=== PATIENT | female | born 1950 | race Caucasian/White ===

== ENCOUNTER 2020-09-07 05:10 | Emergency (ER) | payer MEDICARE, MEDICAID, SELFPAY ==
[2020-09-07] VITALS (7 sets, daily range): BP systolic 148–175; BP diastolic 86–135; PULSE 92–109; RESP 18–19; TEMP 36.7; O2SAT 94–98; BMI 33.3
--- NOTE | 2020-09-07 03:22 | XRR_ITS ---
PROCEDURE INFORMATION: Exam: XR Chest Exam date and time: 09/07/2020 7:10 AM Age: 69 years old Clinical indication: Chest pain TECHNIQUE: Imaging protocol: XR of the chest Views: 1 view. COMPARISON: CR Chest 1 [place] [id number] 10/14/2014 1:01 PM FINDINGS: Lungs: Hypoinflation, interstitial prominence, and trace left basilar airspace disease. Pleural spaces: No pleural effusion. Heart/Mediastinum: Borderline cardiomegaly. Bones/joints: Degenerative change. Other findings: Brassiere artifact. XR/XR chest 1V portable [id number] IMPRESSION: 1. Borderline cardiomegaly. 2. Hypoinflation, interstitial prominence, and trace left basilar airspace disease.
--- NOTE | 2020-09-07 05:44 | ECG_ITS ---
[facility] Test Date: 2020-09-07 Pat Name: Nelida Forrest Department: Room: Gender: Female Project Specialist: : 1950 Requested By: Vasu Riojas Order Number: [id number] Raf MD: DEXTER BERMUDEZ Measurements Intervals [place] Rate: 99 P: 23 AK: 160 QRS: -25 QRSD: 90 T: 20 QT: 341 QTc: 439 Interpretive Statements SINUS RHYTHM VOLTAGE CRITERIA FOR LVH [MEETS CRITERIA IN ONE OF: R(aVL), S(V1), R(V5), R(V5/V6)+S(V1)] ANTERIOR MYOCARDIAL INFARCTION , PROBABLY OLD [40+ ms Q WAVE AND/OR ST/T ABNORMALITY IN V3/V4] Compared to ECG 10/14/2014 12:49:46 Left ventricular hypertrophy now present Sinus tachycardia no longer present Incomplete right bundle-branch block no longer present Myocardial infarct finding still present Electronically Signed On 09-07-2020 18:45:52 AURICULOTHERAPIST by DEXTER BERMUDEZ [id number]
[2020-09-07 05:52] LABS: Basophils # 0.1 10^3/uL (0.0-0.1); Eosinophils # 0.1 10^3/uL (0.0-0.8); Eosinophils % 0.7 %; Hematocrit 45.3 % (37.0-47.0); Hemoglobin 14.5 g/dL (11.5-15.3); Lymphocytes # 2.4 10^3/uL (0.8-4.8); Lymphocytes % 24.7 %; Mean Corpuscular Hemoglobin 30.1 pg (28.0-34.0); Mean Corpuscular Volume 94.2 fL (81-99); Mean Platelet Volume 10.6 fL (7.4-10.4); Monocytes # 0.6 10^3/uL (0.2-0.9); Monocytes % 5.9 %; Neutrophils # 6.56 10^3/uL (1.8-7.7); Neutrophils % 67.5 %; Nucleated Red Blood Cells % 0 %; Platelet Count 366 10^3/cmm (130-400); Red Blood Count 4.81 10^6/uL (4.1-5.3); Red Cell Distribution Width 11.5 % (12.1-15.1); White Blood Count 9.7 10^3/uL (4.0-10.0)
[2020-09-07] MEDS: lidocaine 2% viscous 15 ML, aluminum-mag hydrox-simethicon 30 ML, sucralfate oral liq 1 GM PO ×2 (05:58→09:30)
[2020-09-07] MEDS: sodium chloride 0.9% 1,000 ML 999 ML IV (06:00)
[2020-09-07] MEDS: ondansetron 2 mg/ML SDV 2 mL 4 MG IVP (06:01)
[2020-09-07] MEDS: morphine 4 mg/mL SDV 1 mL IVP (06:05)
--- NOTE | 2020-09-07 06:52 | W.ED.ABDPA2 ---
Documented by User: Vasu Beckham DO 09/07/20 06:57 HPI - Abdominal Pain General: Chief Complaint: Abdominal Pain Stated Complaint: possible gallbladder attack Time Seen by Provider: 09/07/20 05:22 History of Present Illness: HPI narrative: 69-year-old female presenting to the ER this morning with low I think my gallbladder hurts . She points to her epigastrium where she hurts. She has vomited a couple times and been nauseated. She is not short of breath or diaphoretic. She states that she has had pain since 8 PM or so last night no prior coronary disease or diagnosis of gallbladder disease. MD elicited complaint: abdominal pain Pertinent past history: none Associated Symptoms: Reports nausea and vomiting; Denies dysuria, fever(s), hematuria and melena Review of Systems Const: Denies: fever(s) Eyes: Denies: change in vision ENMT: Denies: odynophagia or sinus pain Card: Reports: chest pain; Denies: palpitations or orthopnea Resp: Denies: dyspnea, productive cough, non-productive cough or wheezing GI: Reports: abdominal pain, nausea and vomiting; Denies: melena : Denies: dysuria, urinary frequency, urinary urgency or hematuria Musc: Denies: neck pain, back pain, joint redness or joint warmth Skin/Breast: Denies: rash, pruritus or erythema Neuro: Denies: headache(s), dizziness or vertigo Psych: Denies: anxiety Physical Exam Const: GENERAL APPEARANCE: well developed ORIENTATION/CONSCIOUSNESS: Yes oriented to person, Yes oriented to place and Yes oriented to time HENMT: COMMON NORMALS: normocephalic, external ears normal and Normal external nose present HEAD & SCALP: normocephalic FACE & SINUS: normal facial exam NOSE: Normal external nose present and No nasal discharge present EXTERNAL EAR: Yes external ears normal Eye: COMMON NORMALS: Equal, round and reactive pupils present, EOMs intact bilaterally and conjunctivae normal EYELID: eyelids normal CONJUNCTIVA: Yes conjunctivae normal PUPIL: Yes Equal, round and reactive pupils present Neck/C-Spine: GENERAL: No tracheal deviation Chest: COMMONS NORMALS: normal inspection of the chest CHEST: No tenderness Resp: COMMON NORMALS: clear to auscultation bilaterally EFFORT & INSPECTION: No tachypneic, No respiratory distress, No retractions, No uses accessory muscles and No tracheal deviation AUSCULTATION: clear to auscultation bilaterally, no rhonchi, no wheezes and lung sounds not diminished Cardio: COMMON NORMALS: regular rate and regular rhythm RATE: regular rate RHYTHM: regular rhythm HEART SOUNDS: no murmurs PERIPHERAL PULSES: radial pulses present GI: INSPECTION: No abdominal distension AUSCULTATION: No Hyperactive bowel sounds present and No Hypoactive bowel sounds present PALPATION: No Guarding due to palpation present (GI) and No Rigid due to palpation PERCUSSION: no dullness to percussion and no tympanic to percussion Neuro: SENSORIUM/ORIENTATION: Yes oriented to person, Yes oriented to place and Yes oriented to time Psych: COMMON NORMALS: mental status grossly normal Skin: COMMON NORMALS: no rashes or lesions noted GENERAL SKIN EXAM: no rashes or lesions noted Course Vital Signs: Vital signs: Vital Signs Temperature 98.1 F 09/07/20 05:16 Pulse Rate 92 09/07/20 09:00 Respiratory Rate 18 09/07/20 09:00 Blood Pressure 148/101 09/07/20 06:30 Pulse Oximetry 94 09/07/20 09:00 MDM - Abdominal Pain MDM Narrative: Medical decision making narrative: 69-year-old female with epigastric/chest discomfort. She is received GI cocktail and some morphine. Awaiting labs. EKG shows minimal ST changes in the inferior leads as well as the septal leads. Not true elevation. Troponin is pending. Hemoglobin is 14.5. White count is 9.7. She will be checked out to Dr. Zuleta to follow-up on further studies including troponin. Lab Data: Labs: Lab Results 09/07/20 09/07/20 09/07/20 Range/Units 05:20 05:20 05:20 WBC 9.7 (4.0-10.0) 10^3/ uL RBC 4.81 (4.1-5.3) 10^6/u L Hgb 14.5 (11.5-15.3) g/dL Hct 45.3 (37.0-47.0) % MCV 94.2 (81-99) fL MCH 30.1 (28.0-34.0) pg MCHC 32.0 (30.0-36.0) g/dL RDW 11.5 L (12.1-15.1) % Plt Count 366 (130-400) 10^3/c mm MPV 10.6 H (7.4-10.4) fL Neut % (Auto) 67.5 % Lymph % (Auto) 24.7 % [facility] % (Auto) 5.9 % Eos % (Auto) 0.7 % Baso % (Auto) 1.0 % Neut # (Auto) 6.56 (1.8-7.7) 10^3/u L Lymph # (Auto) 2.4 (0.8-4.8) 10^3/u L [facility] # (Auto) 0.6 (0.2-0.9) 10^3/u L Eos # (Auto) 0.1 (0.0-0.8) 10^3/u L Baso # (Auto) 0.1 (0.0-0.1) 10^3/u L Nucleated RBC % (a uto) 0 % Nucleated RBCs # 0.0 /100WBC Sodium 139 (136-145) mmol/L Potassium 4.2 (3.5-5.1) mmol/L Chloride 99 (98-107) mmol/L Carbon Dioxide 26 (22-29) mmol/L Anion Gap 18.2 (5-19) BUN 9 (8-23) mg/dL Creatinine 0.7 (0.5-0.9) mg/dL GFR Calculation 83.0 L (90-130) mL/min Glucose 120 H (65-115) mg/dL Calculated Osmolal ity 288 (285-295) mOsm/k g Calcium 9.5 (8.5-10.5) mg/dL Total Bilirubin 0.4 (0.15-1.2) mg/dL AST 44 H (0-32) U/L ALT 34 H (0-33) U/L Alkaline Phosphata se 138 H (35-105) IU/L Troponin T Baselin e 9 (0-10) ng/L Troponin T 120 Min [place] (0-10) ng/L Delta Troponin T (0-10) ABS# C-Reactive Protein 2.4 (0.0-4.9) mg/L Total Protein 7.4 (6.6-8.7) g/dL Albumin 4.2 (3.5-5.2) g/dL Globulin 3.2 (1.3-4.6) g/dL Lipase 12 L (13-60) U/L Urine Color (Yellow) Urine Appearance (CLEAR) Urine pH (5-7) Ur Specific Gravit y (1.005-1.030) Urine Protein (Negative) Urine Glucose (UA) (Normal) Urine Ketones (Negative) Urine Blood (Negative) Urine Nitrate (Negative) Urine Bilirubin (Negative) Urine Urobilinogen (Negative) mg/dL Ur Leukocyte Rebecca ase (Negative) 09/07/20 09/07/20 Range/Units 06:44 07:20 WBC (4.0-10.0) 10^3/ uL RBC (4.1-5.3) 10^6/u L Hgb (11.5-15.3) g/dL Hct (37.0-47.0) % MCV (81-99) fL MCH (28.0-34.0) pg MCHC (30.0-36.0) g/dL RDW (12.1-15.1) % Plt Count (130-400) 10^3/c mm MPV (7.4-10.4) fL Neut % (Auto) % Lymph % (Auto) % [facility] % (Auto) % Eos % (Auto) % Baso % (Auto) % Neut # (Auto) (1.8-7.7) 10^3/u L Lymph # (Auto) (0.8-4.8) 10^3/u L [facility] [place] # (Auto) (0.2-0.9) 10^3/u L Eos # (Auto) (0.0-0.8) 10^3/u L Baso # (Auto) (0.0-0.1) 10^3/u L Nucleated RBC % (a uto) % Nucleated RBCs # /100WBC Sodium (136-145) mmol/L Potassium (3.5-5.1) mmol/L Chloride (98-107) mmol/L Carbon Dioxide (22-29) mmol/L Anion Gap (5-19) BUN (8-23) mg/dL Creatinine (0.5-0.9) mg/dL GFR Calculation (90-130) mL/min Glucose (65-115) mg/dL Calculated Osmolal ity (285-295) mOsm/k g Calcium (8.5-10.5) mg/dL Total Bilirubin (0.15-1.2) mg/dL AST (0-32) U/L ALT (0-33) U/L Alkaline Phosphata se (35-105) IU/L Troponin T Baselin e (0-10) ng/L Troponin T 120 Min [place] 7.73 (0-10) ng/L Delta Troponin T -1.27 L (0-10) ABS# C-Reactive Protein (0.0-4.9) mg/L Total Protein (6.6-8.7) g/dL Albumin (3.5-5.2) g/dL Globulin (1.3-4.6) g/dL Lipase (13-60) U/L Urine Color Yellow (Yellow) Urine Appearance Clear (CLEAR) Urine pH 7 (5-7) Ur Specific Gravit y 1.015 (1.005-1.030) Urine Protein Neg (Negative) Urine Glucose (UA) Norm (Normal) Urine Ketones Negative (Negative) Urine Blood Neg (Negative) Urine Nitrate Negative (Negative) Urine Bilirubin Neg (Negative) Urine Urobilinogen Norm (Negative) mg/dL Ur Leukocyte Rebecca ase Negative (Negative) Discharge Plan Discharge Patient Disposition: Home Clinical Impression: Atypical chest pain, Gastroesophageal reflux disease, Tinnitus Condition: Stable Prescriptions: New aspirin 81 mg tablet,delayed release (DR/EC) 81 mg PO DAILY Qty: 30 RF: 0 Protonix 40 mg tablet,delayed release (DR/EC) 40 mg PO QAM 56 Days Qty: 56 RF: 0 No Action Zyrtec 10 mg Tablet 10 mg PO DAILY RF: 0 ibuprofen 200 mg Tablet 400 mg PO PRN RF: 0 Flonase 50 mcg/actuation [place],Suspension 1 spray INTRANASAL DAILY RF: 0 Discharge Orders: Discharge ED (Routine); Ordered 09/07/20 Ordered By: Domenic Fermin Patient Instructions: Opioid Safety Activity Restrictions/Additional Instructions: Case management will call with a referral for a cardiac stress test as well as referral to ear nose and throat for your tenderness. Sign Out Sign Out Data: Patient Sign Out occurred on 09/07/20 at 07:14. Patient's care was discussed, and care was transferred from to Domenic Fermin DO. Coding Level of Care Code ED Coat Check Attendant for Chg Fwd Exam Comprehensive Documented by User: Domenic Fermin DO 09/07/20 10:15 HPI - Abdominal Pain General: Chief Complaint: Abdominal Pain Stated Complaint: possible gallbladder attack Time Seen by Provider: 09/07/20 05:22 Course Vital Signs: Vital signs: Vital Signs Temperature 98.1 F 09/07/20 05:16 Pulse Rate 92 09/07/20 09:00 Respiratory Rate 18 09/07/20 09:00 Blood Pressure 148/101 09/07/20 06:30 Pulse Oximetry 94 09/07/20 09:00 MDM - Abdominal Pain MDM Narrative: Medical decision making narrative: Assumed from Dr. Beckham. Cardiac enzymes negative EKG unremarkable. Patient has improvement with GI cocktail. We will discharge her home set up for outpatient sestamibi stress test started on enteric-coated aspirin daily and PPI. Patient also asked us to check her if she has occlusion of cerumen in the right ear partial occlusion in the left that she has been having a lot of ringing in her years and difficulty with hearing will refer to ENT for further evaluation. Lab Data: Labs: Lab Results 09/07/20 09/07/20 09/07/20 Range/Units 05:20 05:20 05:20 WBC 9.7 (4.0-10.0) 10^3/ uL RBC 4.81 (4.1-5.3) 10^6/u L Hgb 14.5 (11.5-15.3) g/dL Hct 45.3 (37.0-47.0) % MCV 94.2 (81-99) fL MCH 30.1 (28.0-34.0) pg MCHC 32.0 (30.0-36.0) g/dL RDW 11.5 L (12.1-15.1) % Plt Count 366 (130-400) 10^3/c mm MPV 10.6 H (7.4-10.4) fL Neut % (Auto) 67.5 % Lymph % (Auto) 24.7 % [facility] [place] % (Auto) 5.9 % Eos % (Auto) 0.7 % Baso % (Auto) 1.0 % Neut # (Auto) 6.56 (1.8-7.7) 10^3/u L Lymph # (Auto) 2.4 (0.8-4.8) 10^3/u L [facility] [place] [facility] # (Auto) 0.6 (0.2-0.9) 10^3/u L Eos # (Auto) 0.1 (0.0-0.8) 10^3/u L Baso # (Auto) 0.1 (0.0-0.1) 10^3/u L Nucleated RBC % (a uto) 0 % Nucleated RBCs # 0.0 /100WBC Sodium 139 (136-145) mmol/L Potassium 4.2 (3.5-5.1) mmol/L Chloride 99 (98-107) mmol/L Carbon Dioxide 26 (22-29) mmol/L Anion Gap 18.2 (5-19) BUN 9 (8-23) mg/dL Creatinine 0.7 (0.5-0.9) mg/dL GFR Calculation 83.0 L (90-130) mL/min Glucose 120 H (65-115) mg/dL Calculated Osmolal ity 288 (285-295) mOsm/k g Calcium 9.5 (8.5-10.5) mg/dL Total Bilirubin 0.4 (0.15-1.2) mg/dL AST 44 H (0-32) U/L ALT 34 H (0-33) U/L Alkaline Phosphata se 138 H (35-105) IU/L Troponin T Baselin e 9 (0-10) ng/L Troponin T 120 Min [place] (0-10) ng/L Delta Troponin T (0-10) ABS# C-Reactive Protein 2.4 (0.0-4.9) mg/L Total Protein 7.4 (6.6-8.7) g/dL Albumin 4.2 (3.5-5.2) g/dL Globulin 3.2 (1.3-4.6) g/dL Lipase 12 L (13-60) U/L Urine Color (Yellow) Urine Appearance (CLEAR) Urine pH (5-7) Ur Specific Gravit y (1.005-1.030) Urine Protein (Negative) Urine Glucose (UA) (Normal) Urine Ketones (Negative) Urine Blood (Negative) Urine Nitrate (Negative) Urine Bilirubin (Negative) Urine Urobilinogen (Negative) mg/dL Ur Leukocyte Rebecca ase (Negative) 09/07/20 09/07/20 Range/Units 06:44 07:20 WBC (4.0-10.0) 10^3/ uL RBC (4.1-5.3) 10^6/u L Hgb (11.5-15.3) g/dL Hct (37.0-47.0) % MCV (81-99) fL MCH (28.0-34.0) pg MCHC (30.0-36.0) g/dL RDW (12.1-15.1) % Plt Count (130-400) 10^3/c mm MPV (7.4-10.4) fL Neut % (Auto) % Lymph % (Auto) % [facility] [place] % (Auto) % Eos % (Auto) % Baso % (Auto) % Neut # (Auto) (1.8-7.7) 10^3/u L Lymph # (Auto) (0.8-4.8) 10^3/u L [facility] [place] # (Auto) (0.2-0.9) 10^3/u L Eos # (Auto) (0.0-0.8) 10^3/u L Baso # (Auto) (0.0-0.1) 10^3/u L Nucleated RBC % (a uto) % Nucleated RBCs # /100WBC Sodium (136-145) mmol/L Potassium (3.5-5.1) mmol/L Chloride (98-107) mmol/L Carbon Dioxide (22-29) mmol/L Anion Gap (5-19) BUN (8-23) mg/dL Creatinine (0.5-0.9) mg/dL GFR Calculation (90-130) mL/min Glucose (65-115) mg/dL Calculated Osmolal ity (285-295) mOsm/k g Calcium (8.5-10.5) mg/dL Total Bilirubin (0.15-1.2) mg/dL AST (0-32) U/L ALT (0-33) U/L Alkaline Phosphata se (35-105) IU/L Troponin T Baselin e (0-10) ng/L Troponin T 120 Min [place] 7.73 (0-10) ng/L Delta Troponin T -1.27 L (0-10) ABS# C-Reactive Protein (0.0-4.9) mg/L Total Protein (6.6-8.7) g/dL Albumin (3.5-5.2) g/dL Globulin (1.3-4.6) g/dL Lipase (13-60) U/L Urine Color Yellow (Yellow) Urine Appearance Clear (CLEAR) Urine pH 7 (5-7) Ur Specific Gravit y 1.015 (1.005-1.030) Urine Protein Neg (Negative) Urine Glucose (UA) Norm (Normal) Urine Ketones Negative (Negative) Urine Blood Neg (Negative) Urine Nitrate Negative (Negative) Urine Bilirubin Neg (Negative) Urine Urobilinogen Norm (Negative) mg/dL Ur Leukocyte Rebecca ase Negative (Negative) Discharge Plan Discharge Patient Disposition: Home Clinical Impression: Atypical chest pain, Gastroesophageal reflux disease, Tinnitus Condition: Stable Prescriptions: New aspirin 81 mg tablet,delayed release (DR/EC) 81 mg PO DAILY Qty: 30 RF: 0 Protonix 40 mg tablet,delayed release (DR/EC) 40 mg PO QAM 56 Days Qty: 56 RF: 0 No Action Zyrtec 10 mg Tablet 10 mg PO DAILY RF: 0 ibuprofen 200 mg Tablet 400 mg PO PRN RF: 0 Flonase 50 mcg/actuation [place],Suspension 1 spray INTRANASAL DAILY RF: 0 Discharge Orders: Discharge ED (Routine); Ordered 09/07/20 Ordered By: Domenic Fermin Patient Instructions: Opioid Safety Activity Restrictions/Additional Instructions: Case management will call with a referral for a cardiac stress test as well as referral to ear nose and throat for your tenderness. Sign Out Sign Out Data: Patient Sign Out occurred on 09/07/20 at 07:14. Patient's care was discussed, and care was transferred from to Domenic Fermin DO. Coding Level of Care Code ED Coat Check Attendant for Onig Fwd Exam Comprehensive
--- NOTE | 2020-09-07 07:44 | ECG_ITS ---
[facility] Test Date: 2020-09-07 Pat Name: Nelida Forrest Department: Room: Gender: Female Digital Asset Manager: : 1950 Requested By: Vasu Riojas Order Number: [id number] Reading MD: DEXTER BERMUDEZ Measurements Intervals [place] Rate: 94 P: 36 DE: 155 QRS: -27 QRSD: 102 T: 12 QT: 349 QTc: 437 Interpretive Statements SINUS RHYTHM VOLTAGE CRITERIA FOR LVH [MEETS CRITERIA IN ONE OF: R(aVL), S(V1), R(V5), R(V5/V6)+S(V1)] POSSIBLE ANTERIOR MYOCARDIAL INFARCTION , PROBABLY OLD [30 ms Q WAVE IN V3/V4, OR R < 0.2 mV IN V4] Compared to ECG 09/07/2020 05:37:58 No significant changes Electronically Signed On 09-07-2020 18:47:36 DOOR MAKER by DEXTER BERMUDEZ [id number]
[2020-09-07 07:48] LABS: Add Urine Microscopic? NO
[2020-09-07 08:06] LABS: Alanine Aminotransferase 34 U/L (0-33); Albumin Level 4.2 g/dL (3.5-5.2); Alkaline Phosphatase 138 IU/L (35-105); Aspartate Amino Transferase 44 U/L (0-32); Blood Urea Nitrogen 9 mg/dL (8-23); C Reactive Protein 2.4 mg/L (0.0-4.9); Calcium 9.5 mg/dL (8.5-10.5); Carbon Dioxide 26 mmol/L (22-29); Chloride 99 mmol/L (98-107); Globulin 3.2 g/dL (1.3-4.6); Glucose 120 mg/dL (65-115); Lipase 12 U/L (13-60); Osmolality Calculated 288 mOsm/kg (285-295); Sodium 139 mmol/L (136-145); Total Bilirubin 0.4 mg/dL (0.15-1.2); Total Protein 7.4 g/dL (6.6-8.7)
[2020-09-07 08:07] LABS: Bilirubin Urine Neg (Negative); Blood Urine Neg (Negative); Glucose Urine UA Norm (Normal); Ketones Urine Negative (Negative); Leukocyte Esterase Urine Negative (Negative); Nitrate Urine Negative (Negative); Protein Urine Neg (Negative); Specific Gravity, Urine 1.015 (1.005-1.030); Urine Appearance Clear (CLEAR); Urine Color Yellow (Yellow); Urobilinogen Urine Norm (Negative); pH Urine 7 (5-7)
[2020-09-07 08:07] LABS: Troponin(5th) Baseline 9 ng/L (0-10)
[2020-09-07 08:08] LABS: Anion Gap 18.2 (5-19); Potassium 4.2 mmol/L (3.5-5.1)
[2020-09-07 08:14] LABS: Troponin 5 2HR 7.73 ng/L (0-10)
[2020-09-07 08:26] LABS: Troponin 5 2HR Delta -1.27 ABS# (0-10)
--- NOTE | 2020-09-09 15:04 | DCPLANNER ---
admissions manager rn had message to schedule an outpatient stress test for patient. admissions manager rn faxed signed order to centralized scheduling. admissions manager rn will call for appointment information.
--- NOTE | 2020-09-19 09:21 | DCPLANNER ---
Patient has a stress test scheduled for Wednesday, September 23, 2020 at 10:45. Centralized scheduling will call patient with appointment information.
--- NOTE | 2020-09-24 15:50 | DCPLANNER ---
Patient had an out patient stress test scheduled for 09.23.20 - patient did not attend stress test.
== END 2020-09-07 10:16 | disposition home or self-care (01) ==
PROVIDERS: Emergency Medicine; Emergency Provider Family Medicine
DX: R07.89 Other chest pain (principal); K21.9 Gastro-esophageal reflux disease without esophagitis; H93.19 Tinnitus, unspecified ear
CPT/HCPCS: 36415; 71045; 80053; 81003; 83690; 84484; 85025; 86140; 93005; 96361; 96374; 96375; 99284; J2270; J2405; J7030

== ENCOUNTER 2021-04-29 14:53 | Outpatient (CLI) | payer MEDICARE, SELFPAY ==
--- NOTE | 2021-04-29 15:02 | MR_ITS ---
WS: [id number] MRI HEAD WITH CONTRAST WITH ATTENTION TO THE INTERNAL AUDITORY CANALS TECHNIQUE: Sagittal T1, T2 axial, T2 axial flair, axial susceptibility weighted imaging, axial diffus ion weighted images, and coronal T2 images were obtained. Pre and post T1 axial and post T1 coronal i mages. ADC and FSPGR images. Post gadolinium images with attention to the internal auditory canals. A xial fiesta imaging. CLINICAL INFORMATION: OTHER SPECIFIED HEARING LOSS COMPARISON: None. FINDINGS: No evidence of restricted diffusion to suggest acute ischemia. Ventricular system and basal cisterns are patent. Mild small vessel changes. Mild parenchymal volume loss. Normal posterior fossa. Normal v ascular flow voids at the skull base. No extra-axial fluid collections. No evidence of mass or mass e ffect. Paranasal sinuses and mastoid air cells are well aerated. Slight mucosal thickening right mast oid tip. Small peripheral enhancing retention cyst posterior nasopharynx. No hemosiderin on susceptibly weighted images. Proximal 7th and 8th cranial nerves are normal in appe arance. No evidence of enhancing IAC or CP angle mass. Normal trigeminal nerve root entry zones. No a bnormal intracranial enhancement. No enhancing intracranial lesions. Normal dural venous sinuses. Inc idental arachnoid granulations. Normal optic chiasm and pituitary infundibulum. Normal cavernous sinu ses and Meckel's cave. MR/MR iac's wo/w con* [id number] IMPRESSION: 1. No evidence of restricted diffusion to suggest acute ischemia. 2. Mild small vessel changes with mild parenchymal volume loss. 3. No evidence of enhancing IAC or CP angle mass. Normal trigeminal nerve root entry zones. 4. Paranasal sinuses and mastoid air cells are well aerated. Mild mucosal thic kening right mastoid tip. 5. No other significant findings.
== END 2021-04-29 14:54 | disposition home or self-care (01) ==
PROVIDERS: Visit Provider Specialist
DX: H91.8X9 Other specified hearing loss, unspecified ear (principal)
CPT/HCPCS: 70553; A9579